=== PATIENT | female | born 1975 | race Caucasian/White ===

== ENCOUNTER 2023-02-20 07:07 | Day surgery (SDC) | payer OTHER ==
[~2023-02-20] VITALS: Ht 166.4 cm; Wt 75.3 kg
[~2023-02-20 07:07] MED LIST: LEVOTHYROXINE25 MCG PO
== END 2023-02-20 16:35 | disposition home or self-care (01) ==
LOC: CIR.AMB 07:07
PROVIDERS: ATTEND Surgery
DX: K81.1 Chronic cholecystitis (principal); R59.0 Localized enlarged lymph nodes; Z20.822 Contact with and (suspected) exposure to COVID-19; E03.9 Hypothyroidism, unspecified